=== PATIENT | male | born 1995 | race Caucasian/White ===

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

== ENCOUNTER 2017-01-28 10:32 | Emergency (ER) | payer BC ==
[2017-01-28 12:14] LABS: Hematocrit 44 % (42-52); Hemoglobin 14.9 g/dl (14.0-18.0); Mean Corpuscular HGB Conc 34 g/dl (31-36); Mean Corpuscular Hemoglobin 29 pg (27-31); Mean Corpuscular Volume 84 fL (80-94); Mean Platelet Volume 8 um3 (7.4-10.4); Red Cell Distribution Width 14 % (10.5-15); White Blood Count 8.9 10^3/ul (3.5-10.8)
[2017-01-28] MEDS: NS 0.9% 1000 ML* 2,000 ML IV ONE ×2 (12:15→13:56)
[2017-01-28 12:29] LABS: Albumin 4.9 g/dL (3.2-5.2); BUN/Creatinine Ratio 9.3 (8-20); Calcium 9.7 mg/dL (8.6-10.3); EGFR African American 128.2 (>60); EGFR Non-African American 99.7 (>60); Globulin 2.6 g/dL (2-4); Potassium 3.9 mmol/L (3.5-5.0); Total Bilirubin 0.9 mg/dL (0.2-1.0); Total Protein 7.5 g/dL (6.4-8.9)
--- NOTE | 2017-01-28 13:11 | RAD ---
Indication: Vertigo, dizziness. Comparison: No relevant prior exams available on the [facility] PACS for comparison. Technique: Noncontrast CT vertex of skull through foramen magnum. Report: The sulci, ventricles, and basal cisterns are normal for age. Wong matter white matter differentiation is preserved without evidence for edema. No intra or extra axial hemorrhage, mass, or fluid collection detected. Unremarkable visualized orbital contents. Unremarkable calvarium and skull base. Unremarkable scalp. The visualized paranasal sinuses and mastoid air spaces are clear. IMPRESSION: Negative unenhanced head CT.
[2017-01-28 15:05] VITALS: BP 123/69
--- NOTE | 2017-02-16 15:50 | ED ---
Claudine Preciado Thomas, scribed for Terrell Hernandes MD on 01/28/17 at 1147 . Dizziness - HPI Summary HPI Summary: The pt is a 21 y/o M presenting to the ED c/o vertigo that began today at 06: 00. He describes his vertigo as things felt like they were turning. This morning, he reports that he was stumbling when walking down the stairs, but in the ED this has somewhat resolved. The dizziness is aggravated by lying still as well as moving. It is alleviated by nothing. The patient has treated the dizziness with nothing BORDER GUARD. However, he did take Tylenol severe cold and flu ( once or twice) last night and he took Nyquil Cold and Flu last night at 20:00 and this morning at 00:00, and 03:30. He took two capsules each time he took the medication. He reports prior episodes of vertigo as a side effect from an unspecified steroid. He has had two prior episodes of vertigo earlier this year. Pt additionally c/o loose stools (three days ago but none in the ED), sore throat (three and two days ago but none in the ED), cough (progressively worse since two days ago), postnasal drip, sinus pressure, nasal congestion, and tiredness. Pt denies facial pain, MALCOLM, photophobia, myalgia, arthralgia, testicular pain, penile discharge, dysuria, hematuria, ear pain, ear pressure, and nasal drainage. PMHx: previously healthy. PSHx: appendectomy. SHx: no smoking, rare drinking, no illicit drug use. He does not have a diagnosis of migraines. He is a sophomore at [employer]. - History Of Current Complaint Chief Complaint: EDDizziness Stated Complaint: DIZZY Time Seen by Provider: 01/28/17 11:26 Hx Obtained From: Patient Onset/Duration: Still Present Timing: Hours - onset today at 06:00 Character: Room Spinning Aggravating Factor(s): Other - Sitting still as well as movement Alleviating Factor(s): Nothing Associated Signs And Symptoms: Positive: Other: - POS: vertigo, loose stools, cough, sore throat, postnasal drip, sinus pressure, nasal congestion, tiredness ; NEG: facial pain, MALCOLM, photophobia, myalgia, arthralgia, testicular pain, penile discharge, dysuria, hematuria, ear pain, ear pressure, nasal drainage Related History: Similar Episode/Dx as - two prior episodes of vertigo earlier this year - Allergies/Home Medications Allergies/Adverse Reactions: Allergies Allergy/AdvReac Type Severity Reaction Status Date / Time No Known Allergies Allergy Verified 01/28/17 10:39 PMH/Surg Hx/FS Hx/Imm Hx Previously Healthy: Yes Endocrine/Hematology History: Denies: Hx Diabetes Cardiovascular History: Denies: Hx Congestive Heart Failure - Surgical History Surgery Procedure, Year, and Place: Appendectomy. Infectious Disease History: No Infectious Disease History: Denies: Traveled Outside the [place] in Last 30 Days - Family History Known Family History: Positive: Hypertension - Social History Alcohol Use: Rare Substance Use Type: Reports: None Hx Tobacco Use: No Smoking Status (MU): Never Smoked Tobacco Have You Smoked in the Last Year: No Review of Systems Negative: Fever, Chills Negative: Photophobia, Erythema - eyes Positive: Sore Throat, Other - POS: postnasal drip, sinus pressure, nasal congestion; NEG: ear pressure. Negative: Ear Ache, Nasal Discharge Negative: Chest Pain Positive: Cough. Negative: Shortness Of Breath Positive: Other - POS: loose stools. Negative: Abdominal Pain, Vomiting, Nausea Negative: dysuria, discharge - no penile discharge, hematuria, other - NEG: testicular pain Negative: Arthralgia, Myalgia, Edema - leg, Other - NEG: facial pain Negative: Rash Neurological: Other - POS: dizziness, tiredness Negative: Headache All Other Systems Reviewed And Are Negative: Yes Physical Exam - Summary Physical Exam Summary: Constitutional: Well-developed, Well-nourished, Alert. (-) Distressed Skin: Warm, Dry HENT: There was a small amount of fluid behind each eardrum bilaterally. Eyes: Conjunctiva normal Neck: Musculoskeletal ROM normal neck. (-) JVD, (-) Stridor, (-) Tracheal deviation Cardio: Rhythm regular, rate normal, Heart sounds normal; Intact distal pulses; The pedal pulses are 2+ and symmetric. Radial pulses are 2+ and symmetric. (-) Murmur Pulmonary/Chest wall: Effort normal. (-) Respiratory distress, (-) Wheezes, (-) Rales Abd: Soft. (-) Tenderness, ~(-) Distension, (-) Guarding, (-) Rebound Musculoskeletal: (-) Edema Lymph: (-) Cervical adenopathy Neuro: Alert, Oriented x3, Strength normal, Cranial nerves II-XII are grossly intact. (-) Dysmetria, (-) Nystagmus, (-) Ataxia by finger to nose testing, (-) Sensory deficit. (-) [place]-Hallpike test. Psych: Mood and affect Normal Vital Signs On Initial Exam: Initial Vitals Temp Pulse Resp BP Pulse Ox 98.6 F 90 15 135/90 98 01/28/17 10:35 01/28/17 10:35 01/28/17 10:35 01/28/17 10:35 01/28/17 10:35 Diagnostics - Vital Signs Vital Signs Temp Pulse Resp BP Pulse Ox 01/28/17 10:35 98.6 F 90 15 135/90 98 - Laboratory Result Diagrams: 01/28/17 12:06 01/28/17 12:06 Lab Statement: Any lab studies that have been ordered have been reviewed, and results considered in the medical decision making process. - CT CT Brain CT Interpretation: No Acute Changes - CT Brain shows negative unenhanced head CT. ED Physician has reviewed this report and agrees. CT Interpretation Completed By: Radiologist - EKG 12:45 Cardiac Rate: NL - 79 BPM EKG Interpretation: NSR. No STEMI. Re-Evaluation - Re-Evaluation First Eval Re-Evaluation Time: 14:42 Change: Improved Comment: He is feeling better Dizzy Course/Dx - Course Assessment/Plan: The pt is a 21 y/o M c/o vertigo that began today at 06:00. He describes his vertigo as things felt like they were turning. The dizziness is aggravated by lying still as well as moving. He did take Tylenol severe cold and flu (once or twice) last night and he took Nyquil Cold and Flu last night at 20:00 and this morning at 00:00, and 03:30. He took two capsules each time he took the medication. He reports prior episodes of vertigo as a side effect from an unspecified steroid. Pt additionally c/o loose stools, sore throat, cough, postnasal drip, sinus pressure, nasal congestion, and tiredness. Patient has no other complaints at this time. In the ED course the patient was given IV fluids. Bloodwork was obtained. CT brain was negative. EKG shows NSR. I have strong suspicion for medication adverse effect and dose stacking. We do not suspect a cerebrovascular event. He has no risk factors for a stroke. He was observed in the ED for a few hours. He is diagnosed with dizziness, medication adverse effect, and URI. He is discharged home with follow up at [facility]. - Diagnoses Provider Diagnoses: Dizziness, Medication adverse effect, URI (upper respiratory infection) Discharge - Discharge Plan Condition: Stable Disposition: HOME Patient Education Materials: Dizziness (ED), Upper Respiratory Infection (ED) Referrals: [facility] [Medical Doctor] - 3 Days The documentation as recorded by the Claudine benitez Thomas accurately reflects the service I personally performed and the decisions made by , Terrell Hernandes MD.
== END 2017-01-28 15:07 | disposition home or self-care (01) ==
LOC: ED 10:32
DX: R42 Dizziness and giddiness (principal); J06.9 Acute upper respiratory infection, unspecified; T38.0X5A Adverse effect of glucocorticoids and synthetic analogues, initial encounter; Y92.9 Unspecified place or not applicable
CPT/HCPCS: 36415; 70450; 80053; 85027; 93005; 96360; 99282